=== PATIENT | female | born 1960 | race African-American/Black ===

== ENCOUNTER 2018-04-18 10:13 | Emergency (ER) | payer BC ==
[~2018-04-18] VITALS: Ht 177.8 cm; Wt 87.5 kg
[2018-04-18 10:23] VITALS: Ht 177.8 cm; Wt 87.5 kg
[2018-04-18 12:51] VITALS: BP 155/75
== END 2018-04-18 12:51 | disposition home or self-care (01) ==
LOC: ED 10:13
DX: R51 Headache (principal)